=== PATIENT | male | born 1985 | race Caucasian/White ===

== ENCOUNTER 2018-01-23 13:05 | Emergency (ER) | payer SELFPAY, OTHER, MEDICAID ==
[2018-01-23] MEDS: LIDOCAINE/MYLANTA 40 ML BTL PO (16:47)
== END 2018-01-23 18:41 | disposition home or self-care (01) ==
LOC: FTE 13:05
DX: T17.228A Food in pharynx causing other injury, initial encounter (principal); X58.XXXA Exposure to other specified factors, initial encounter; Y92.9 Unspecified place or not applicable
CPT/HCPCS: 70360; 70490; 99284-25